=== PATIENT | female | born 1970 | race Caucasian/White ===

== ENCOUNTER 2017-09-14 11:13 | Inpatient (IN) | payer OTHER ==
[2017-09-14] VITALS (12 sets, daily range): BP systolic 101–131; BP diastolic 64–82
[~2017-09-14] VITALS: Ht 154.9 cm; Wt 52.5 kg
[~2017-09-14 11:13] MED LIST: OXYC-302 PO
[2017-09-14] MEDS ORDERED: SODIUM CHLORIDE 0.9% 1,000 ML IV ONE (11:58)
[2017-09-14] MEDS ORDERED: KETOROLAC 30 MG/1 ML IVPush ONE (12:00)
[2017-09-14] MEDS ORDERED: ACETAMINOPHEN 325 MG TABLET PO ONE (12:00)
[2017-09-14] MEDS ORDERED: ONDANSETRON 2MG/ML, 2ML IVPush ONE (12:00)
[2017-09-14] MEDS ORDERED: ACETAMINOPHEN 500 MG TABLET ONE (12:20)
[2017-09-14] MEDS ORDERED: ONDANSETRON 2MG/ML, 2ML ONE (12:20)
[2017-09-14] MEDS ORDERED: KETOROLAC 30 MG/1 ML ONE (12:20)
[2017-09-14 12:33] LABS: WHITE BLOOD COUNT 8.4 x10^3/uL (3.4-10)
[2017-09-14 12:37] LABS: ASPARTATE AMINO TRANSFERASE 18 U/L (15-37); BLOOD UREA NITROGEN 7 mg/dL (7-18)
[2017-09-14 12:43] LABS: IS PT STATUS REG ER OR PRE ER? YES
[2017-09-14 13:08] LABS: RAPID INFLUENZA A Negative (Negative); RAPID INFLUENZA B Negative (Negative)
[2017-09-14 13:14] LABS: HEMATOCRIT 19.3 % (34.6-47.8); HEMOGLOBIN 5.8 g/dL (11.7-16.4)
[2017-09-14 13:15] LABS: DIFF TOTAL CELLS COUNTED 100 CELL DIFF
[2017-09-14 13:17] LABS: VERIFY COUNTS? YES
[2017-09-14 13:19] LABS: ANISOCYTOSIS 1+; HYPOCHROMIA 1+; MICROCYTOSIS 2+; STOMATOCYTES 1+
[2017-09-14] MEDS ORDERED: OXYC15TA PO (13:58)
[2017-09-14] MEDS ORDERED: FERR-46 PO (14:39)
[2017-09-14] MEDS ORDERED: OXYC10TA47 PO (14:39)
[2017-09-14] MEDS ORDERED: ACETAMINOPHEN 325 MG TABLET ONE (16:05)
[2017-09-14] MEDS ORDERED: DIPHENHYDRAMINE 50 MG/ML, 1ML ONE (16:06)
[2017-09-14] MEDS ORDERED: ONDANSETRON 2MG/ML, 2ML IVPush PRN (16:30)
[2017-09-14] MEDS: OXYcodone IR 5MG TABLET PO SCH ×2 (17:22→22:53)
[2017-09-14] MEDS: CEFTRIAXONE PMX 2GM/50ML 50 ML IV SCH (19:19)
[2017-09-14] MEDS: ACETAMINOPHEN 325 MG TABLET PO PRN (21:29)
[2017-09-15] VITALS (10 sets, daily range): BP systolic 100–121; BP diastolic 66–80
[2017-09-15] MEDS ORDERED: FUROSEMIDE 40 MG/4 ML IV PRN (04:30)
[2017-09-15] MEDS: OXYcodone IR 5MG TABLET PO SCH ×4 (04:55→21:29)
[2017-09-15] MEDS ORDERED: IBUPROFEN 200 MG TABLET PO PRN (06:30)
[2017-09-15 10:05] LABS: HEMATOCRIT 29.7 % (34.6-47.8); HEMOGLOBIN 9.4 g/dL (11.7-16.4); WHITE BLOOD COUNT 9.6 x10^3/uL (3.4-10)
[2017-09-15 10:40] LABS: FERRITIN 38.1 ng/mL (8-252)
[2017-09-15] MEDS: OxyconTIN ER 10 MG TAB.ER PO PRN (10:48)
[2017-09-15] MEDS: IRON SUCROSE COMPLEX 100MG/5ML IV SCH (11:15)
[2017-09-15] MEDS: ASCORBIC ACID 500 MG TABLET PO SCH (16:31)
[2017-09-15] MEDS: CEFTRIAXONE PMX 2GM/50ML 50 ML IV SCH (17:24)
[2017-09-16 01:44] VITALS: BP 124/78
[2017-09-16] MEDS: ACETAMINOPHEN 325 MG TABLET PO PRN ×2 (01:52→16:15)
[2017-09-16] MEDS: OXYcodone IR 5MG TABLET PO SCH ×4 (04:04→21:54)
[2017-09-16 07:05] VITALS: BP 134/78
[2017-09-16] MEDS: ASCORBIC ACID 500 MG TABLET PO SCH ×2 (10:29→16:15)
[2017-09-16] MEDS: IRON SUCROSE COMPLEX 100MG/5ML IV SCH (10:29)
[2017-09-16] MEDS: OxyconTIN ER 10 MG TAB.ER PO PRN (13:07)
[2017-09-16 14:20] VITALS: BP 141/82
[2017-09-16] MEDS: CEFTRIAXONE PMX 2GM/50ML 50 ML IV SCH (16:16)
[2017-09-16 19:22] VITALS: BP 146/90
[2017-09-17 02:14] VITALS: BP 130/79
[2017-09-17] MEDS: OXYcodone IR 5MG TABLET PO SCH ×2 (03:53→10:15)
[2017-09-17 07:40] VITALS: BP 154/88
[2017-09-17] MEDS: IRON SUCROSE COMPLEX 100MG/5ML IV SCH (10:15)
[2017-09-17] MEDS: ASCORBIC ACID 500 MG TABLET PO SCH (10:15)
[2017-09-17] MEDS ORDERED: CEFD300C37 PO (11:33)
[2017-09-17] MEDS ORDERED: ASCO10004 PO (11:33)
[2017-09-17] MEDS ORDERED: DOCU-131 PO (11:33)
[2017-09-17] MEDS ORDERED: FERR-46 PO (11:33)
== END 2017-09-17 12:08 | disposition home or self-care (01) | DRG 872 ==
LOC: ED 12:08 → EDIP 13:19 → 3NE 14:30
PROVIDERS: ADMIT Hospitalist; ATTEND Hospitalist
PROC: 30233N1 Transfusion of Nonautologous Red Blood Cells into Peripheral Vein, Percutaneous Approach (ICD-10-PCS; principal; 2017-09-14)
DX: A41.9 Sepsis, unspecified organism (principal); D50.9 Iron deficiency anemia, unspecified; F17.200 Nicotine dependence, unspecified, uncomplicated; F10.10 Alcohol abuse, uncomplicated; F12.90 Cannabis use, unspecified, uncomplicated; N39.0 Urinary tract infection, site not specified; G89.29 Other chronic pain; Y90.9 Presence of alcohol in blood, level not specified; B96.20 Unspecified Escherichia coli [E. coli] as the cause of diseases classified elsewhere; N92.0 Excessive and frequent menstruation with regular cycle; Z90.49 Acquired absence of other specified parts of digestive tract; Z79.899 Other long term (current) drug therapy
CPT/HCPCS: 36415; 71010; 80053; 81001; 82607; 82728; 83010; 83540; 83550; 83615; 83921; 84182; 84439; 84443; 84466; 84481; 84484; 85025; 85045; 86850; 86900; 86923; 87040; 87077; 87086; 87186; 87400; 93005; 96361; 96374; 96375; J0696; J1756; J1885; J2405; J7030; P9016

== ENCOUNTER 2017-12-09 06:30 | Observation (INO) | payer OTHER ==
[~2017-12-09] VITALS: Ht 154.9 cm; Wt 56.0 kg
[~2017-12-09 06:30] MED LIST changes: +ASCO10004 PO; +BUPIVACAINE/PF 0.25% ONE; +CEFD300C37 PO; +DOCU-131 PO; +EPINEPHRINE 1 MG/ML, 1ML ONE; +FERR-46 PO; +FERR-51 PO; +NEOMY/POLYMYXIN B GU IRR. 1 ML IRRIG ONE; +OXYC10TA47 PO; +OXYC15TA PO
[2017-12-09] MEDS ORDERED: LACTATED RINGERS 1,000 ML IV SCH (07:24)
[2017-12-09] MEDS ORDERED: FENTANYL PF 250 MCG/5ML ONE ×2 (07:25→10:21)
[2017-12-09] MEDS ORDERED: MIDAZOLAM 1 MG/ML, 2ML ONE (07:25)
[2017-12-09] MEDS ORDERED: PROPOFOL 10 MG/ML, 20ML ONE (07:26)
[2017-12-09] MEDS ORDERED: ONDANSETRON 2MG/ML, 2ML ONE (07:28)
[2017-12-09] MEDS ORDERED: ROCURONIUM 10 MG/ML,10ML ONE (07:28)
[2017-12-09] MEDS ORDERED: DEXAMETHASONE 4 MG/ML, 1ML ONE ×2 (07:28)
[2017-12-09] MEDS ORDERED: NEOSTIGMINE 1 MG/ML, 10ML ONE (07:29)
[2017-12-09] MEDS ORDERED: GLYCOPYRROLATE 0.4 MG/2 ML, 2ML ONE (07:29)
[2017-12-09] MEDS ORDERED: SODIUM CHLORIDE 0.9% PF 10ML ONE (07:30)
[2017-12-09] MEDS ORDERED: OxyconTIN ER 20 MG TAB.ER PO ONE (07:30)
[2017-12-09] MEDS ORDERED: GABAPENTIN 300 MG CAPSULE PO ONE (07:30)
[2017-12-09] MEDS ORDERED: ACETAMINOPHEN 500 MG TABLET PO ONE (07:30)
[2017-12-09] MEDS ORDERED: SCOPOLAMINE PATCH, 1.5MG PATCH.TD72 TD ONE (07:30)
[2017-12-09] MEDS ORDERED: CEFAZOLIN 1,000 MG ONE ×2 (07:30)
[2017-12-09 08:11] LABS: HCG UR SG 1.017 (1.003-1.030)
[2017-12-09] MEDS ORDERED: LABETALOL 5MG/ML, 20ML IV PRN (09:30)
[2017-12-09] MEDS ORDERED: PROMETHAZINE 12.5 MG SUPP PR PRN (09:30)
[2017-12-09] MEDS ORDERED: PROMETHAZINE 25 MG/ML, 1ML IV PRN (09:30)
[2017-12-09] MEDS ORDERED: OXYcodone 5 MG/5 ML ORAL.SOL UDC PO PRN (09:30)
[2017-12-09] MEDS ORDERED: hydrALAzine 20 MG/ML, 1ML IV PRN (09:30)
[2017-12-09] MEDS ORDERED: ONDANSETRON 2MG/ML, 2ML IVPush PRN (09:30)
[2017-12-09] MEDS ORDERED: morphine SULFATE 10 MG/ML, 1ML IV PRN (09:30)
[2017-12-09] MEDS ORDERED: HYDROmorphone 1 MG/ML, 1ML IV PRN (09:30)
[2017-12-09] MEDS ORDERED: FENTANYL PF 100 MCG/2ML ONE ×2 (10:46→12:06)
[2017-12-09] MEDS ORDERED: FUROSEMIDE 20 MG/2 ML ONE (11:26)
[2017-12-09] MEDS ORDERED: MEPERIDINE/PF 50 MG/ML ONE (12:06)
[2017-12-09] MEDS ORDERED: OXYcodone 5 MG/5 ML ORAL.SOL UDC ONE (12:07)
[2017-12-09] MEDS: FENTANYL PF 100 MCG/2ML IV PRN ×2 (12:09→12:31)
[2017-12-09] MEDS: MEPERIDINE/PF 25MG/0.5ML IVPush PRN ×3 (12:10→13:05)
[2017-12-09] MEDS ORDERED: PROMETHAZINE 25 MG/ML, 1ML ONE (12:41)
[2017-12-09] MEDS ORDERED: HYDROmorphone 2 MG/ML, 1ML ONE ×2 (13:34→18:24)
[2017-12-09] MEDS ORDERED: OXYcodone/APAP 5/325MG TABLET ONE (16:51)
[2017-12-09] MEDS ORDERED: HYDROmorphone 2 MG/ML, 1ML IV PRN (20:30)
[2017-12-09] MEDS ORDERED: HYDROcodone/APAP 5/325 TABLET PO PRN (20:30)
[2017-12-09] MEDS ORDERED: ACETAMINOPHEN 650 MG SUPP PR PRN (20:30)
[2017-12-09] MEDS ORDERED: ACETAMINOPHEN 325 MG TABLET PO PRN (20:30)
[2017-12-09] MEDS ORDERED: ONDANSETRON 2MG/ML, 2ML IV PRN (20:30)
[2017-12-09] MEDS ORDERED: ZOLPIDEM 5MG TABLET PO PRN (21:00)
[2017-12-09] MEDS ORDERED: FLURAZEPAM 15 MG CAPSULE PO PRN (21:00)
[2017-12-09] MEDS ORDERED: OXYcodone IR 5MG TABLET PO PRN (21:00)
[2017-12-09] MEDS: FERROUS SULFATE 325 MG TABLET PO SCH (21:31)
[2017-12-09] MEDS: SIMETHICONE 80 MG CHEW TAB PO SCH (21:31)
[2017-12-09] MEDS: DOCUSATE 100 MG CAPSULE PO SCH (21:31)
[2017-12-09] MEDS: ASCORBIC ACID 500 MG TABLET PO SCH (21:31)
[2017-12-09] MEDS: IBUPROFEN 600 MG TABLET PO SCH (21:31)
[2017-12-09] MEDS: OXYcodone/APAP 5/325MG TABLET PO PRN (21:32)
[2017-12-09] MEDS: MORPHINE SULFATE 4 MG/ML, 1ML IVPush PRN (21:46)
[2017-12-10 00:35] VITALS: BP 115/68
[2017-12-10] MEDS: OXYcodone/APAP 5/325MG TABLET PO PRN ×3 (01:35→09:21)
[2017-12-10 04:30] VITALS: BP 101/65
[2017-12-10] MEDS: IBUPROFEN 600 MG TABLET PO SCH ×2 (05:27→10:53)
[2017-12-10 07:10] VITALS: BP 125/78
[2017-12-10] MEDS: MORPHINE SULFATE 4 MG/ML, 1ML IVPush PRN (07:41)
[2017-12-10] MEDS: SIMETHICONE 80 MG CHEW TAB PO SCH (07:41)
[2017-12-10] MEDS: DOCUSATE 100 MG CAPSULE PO SCH (07:41)
[2017-12-10] MEDS: FERROUS SULFATE 325 MG TABLET PO SCH (07:41)
[2017-12-10] MEDS: ASCORBIC ACID 500 MG TABLET PO SCH (07:41)
[2017-12-10 10:18] VITALS: BP 123/86
== END 2017-12-10 11:47 | disposition home or self-care (01) ==
LOC: OUT 06:30 → 4NOR 19:50 → OUT 20:56 → DCLOUNGE 12-10 11:29
PROVIDERS: ADMIT Obstetrics & Gynecology Female Pelvic Medicine and Reconstructive Surgery; ATTEND Obstetrics & Gynecology Female Pelvic Medicine and Reconstructive Surgery
PROC: 0UT9FZZ Resection of Uterus, Via Natural or Artificial Opening With Percutaneous Endoscopic Assistance (ICD-10-PCS; principal; 2017-12-09 08:30)
DX: D25.9 Leiomyoma of uterus, unspecified (principal); D21.9 Benign neoplasm of connective and other soft tissue, unspecified; N80.0 Endometriosis of uterus; N83.209 Unspecified ovarian cyst, unspecified side; N88.8 Other specified noninflammatory disorders of cervix uteri; N80.3 Endometriosis of pelvic peritoneum; N81.11 Cystocele, midline; Z87.442 Personal history of urinary calculi
CPT/HCPCS: 56810; 57265; 58554; 81025; 88307; 96374; C1771; G0378; J0171; J0690; J1100; J1940; J2175; J2250; J2405; J2550; J2704; J2710; J3010; J3490; J7120